=== PATIENT | female | born 1985 | race Caucasian/White ===

== ENCOUNTER 2019-12-11 20:40 | Emergency (ER) | payer BC ==
[~2019-12-11] VITALS: Ht 170.2 cm; Wt 93.1 kg
--- NOTE | 2019-12-11 20:53 | PHYS DOC ---
Adult General Chief Complaint Chief Complaint: SHORTNESS OF BREATH HPI HPI 34-year-old female presents emergency department complaints of shortness of breath. Patient states she had symptoms of fever and cough for the last 4 days worsening today. She states that she was told to self quarantine which she has been doing however given the shortness of breath that is worsened over the last 30 to 40 minutes she presents to the ER for further evaluation. Patient denies any headache or visual change, chest pain, nausea or vomiting, abdominal pain. Nothing makes her symptoms worse, nothing makes her symptoms better. Review of Systems Review of Systems Constitutional: fever Respiratory: cough/SOB Cardiovascular: No additional information not addressed in HPI [] GI: Denies abdominal pain, nausea, vomiting, bloody stools or diarrhea [] Musculoskeletal: Denies back pain or joint pain [] Neurologic: Denies headache, focal weakness or sensory changes [] All other systems were reviewed and found to be within normal limits, except as documented in this note. Current Medications Current Medications Current Medications Medications (Trade) Dose Ordered Sig/Sabrina Start Time Stop Time Status Last Admin Dose Admin Albuterol/ Ipratropium (Duoneb) 3 ml 1X ONCE 12/11/19 21:00 12/11/19 21:01 DC 12/11/19 20:56 3 ML Sodium Chloride 1,000 ml @ 1,000 mls/hr 1X ONCE 12/11/19 21:30 12/11/19 22:29 DC 12/11/19 22:01 1,000 MLS/HR Allergies Allergies Allergies Coded Allergies Type Severity Reaction Last Updated Verified No Known Drug Allergies 12/11/19 No Physical Exam Physical Exam Constitutional: Well developed, well nourished, mild distress, non-toxic appea tin. [] Cardiovascular: Tachycardia Lungs & Thorax: coarse BS Skin: Warm, dry, no erythema, no rash. [] Extremities: No tenderness, no edema. [] Neurologic: Alert and oriented X 3, no focal deficits noted. [] Psychologic: Affect normal, judgement normal, mood normal. [] Current Patient Data Vital Signs Vital Signs Date Time Temp Pulse Resp B/P (MAP) Pulse Ox O2 Delivery O2 Flow Rate FiO2 12/11/19 20:58 99 Room Air 12/11/19 20:40 98.5 89 20 140/87 (104) 98.5 Lab Values Laboratory Tests Test 12/11/19 20:50 White Blood Count 9.9 x10^3/uL (4.0-11.0) Red Blood Count 4.81 x10^6/uL (3.50-5.40) Hemoglobin 14.2 g/dL (12.0-15.5) Hematocrit 41.0 % (36.0-47.0) Mean Corpuscular Volume 85 fL (79-100) Mean Corpuscular Hemoglobin 30 pg (25-35) Mean Corpuscular Hemoglobin Concent 35 g/dL (31-37) Red Cell Distribution Width 14.1 % (11.5-14.5) Platelet Count 363 x10^3/uL (140-400) Neutrophils (%) (Auto) 57 % (31-73) Lymphocytes (%) (Auto) 31 % (24-48) Monocytes (%) (Auto) 10 % (0-9) H Eosinophils (%) (Auto) 2 % (0-3) Basophils (%) (Auto) 1 % (0-3) Neutrophils # (Auto) 5.6 x10^3/uL (1.8-7.7) Lymphocytes # (Auto) 3.0 x10^3/uL (1.0-4.8) Monocytes # (Auto) 1.0 x10^3/uL (0.0-1.1) Eosinophils # (Auto) 0.2 x10^3/uL (0.0-0.7) Basophils # (Auto) 0.1 x10^3/uL (0.0-0.2) Sodium Level 138 mmol/L (136-145) Potassium Level 3.4 mmol/L (3.5-5.1) L Chloride Level 99 mmol/L (98-107) Carbon Dioxide Level 26 mmol/L (21-32) Anion Gap 13 (6-14) Blood Urea Nitrogen 12 mg/dL (7-20) Creatinine 1.0 mg/dL (0.6-1.0) Estimated GFR (Cockcroft-Gault) 63.1 BUN/Creatinine Ratio 12 (6-20) Glucose Level 98 mg/dL (70-99) Calcium Level 9.3 mg/dL (8.5-10.1) Total Bilirubin 0.4 mg/dL (0.2-1.0) Aspartate Amino Transferase (AST) 22 U/L (15-37) Alanine Aminotransferase (ALT) 34 U/L (14-59) Alkaline Phosphatase 106 U/L (46-116) Total Protein 7.7 g/dL (6.4-8.2) Albumin 3.6 g/dL (3.4-5.0) Albumin/Globulin Ratio 0.9 (1.0-1.7) L Influenza Type A Antigen Negative (NEGATIVE) Influenza Type B Antigen Negative (NEGATIVE) Laboratory Tests 12/11/19 20:50 Laboratory Tests 12/11/19 20:50 EKG EKG [] Radiology/Procedures Radiology/Procedures [place] [id number] IMAGING REPORT Signed PATIENT: ERIKA DUVALLCOUNT: [id number] : 1985 LOCATION: ER AGE: 34 SEX: F EXAM STATUS: REG ER ORD. PHYSICIAN: DURGA VELAZQUEZ MD REASON: SOB/Fever/Cough PROCEDURE: PORTABLE CHEST 1V Study: CR PORTABLE CHEST 1V Indication: Shortness of breath. Fever. Cough. Comparison: None. Findings: Azygos lobe noted. Within normal limits cardiomediastinal silhouette and donis. No lobar consolidation, pleural effusion or pneumothorax. Impression: No acute radiographic abnormality of the chest. Electronically signed by: SOUMYA PERKINS MD (12/11/2019 9:30 PM) [id number] DICTATED and SIGNED BY: SOUMYA PERKINS MD DATE: 12/11/192129 [] [address] [id number] IMAGING REPORT Signed PATIENT: ERIKA DUVALL MACCOUNT: [id number] : 1985 LOCATION: ER AGE: 34 SEX: F EXAM STATUS: REG ER ORD. PHYSICIAN: DURGA VELAZQUEZ MD REASON: cough/fever/SOB / HX Denies PROCEDURE: CT CHEST WO CONTRAST Exam: CT of chest without contrast INDICATION: Cough, fever, shortness of breath TECHNIQUE: Sequential axial images through the chest obtained without IV contrast. Sagittal and coronal reformatted images were reconstructed from the axial data and reviewed. Comparisons: None FINDINGS: Visualized portions of the thyroid are unremarkable. No enlarged mediastinal lymph nodes are identified. Heart size is normal. No pericardial effusion. Thoracic aorta has a normal course and caliber. Pulmonary artery is not enlarged. Airways are patent. No consolidation or pneumothorax. Patchy areas of tree-in-bud nodularity/groundglass opacity in the left upper lobe. No pleural effusion or thickening. Visualized upper abdomen is unremarkable. No suspicious osseous lesions or acute fractures. IMPRESSION: Tree-in-bud areas of nodularity/ground glass opacity in the left upper lobe favored to be infectious or inflammatory in etiology. Exposure: One or more of the following in the visualized dose reduction techniques were utilized for this examination: 1. Automated exposure control 2. Adjustment of the MA and/or KV according to patient size 3. Use of iterative of reconstructive technique Electronically signed by: Fernando Mi MD (12/11/2019 10:00 PM) [id number] DICTATED and SIGNED BY: FERNANDO MI MD DATE: 12/11/192199 Course & Med Decision Making Course & Med Decision Making Pertinent Labs and Imaging studies reviewed. (See chart for details) []34-year-old female presents emergency department complaints of shortness of breath. Patient states she had symptoms of fever and cough for the last 4 days worsening today. She states that she was told to self quarantine which she has been doing however given the shortness of breath that is worsened over the last 30 to 40 minutes she presents to the ER for further evaluation. Patient denies any headache or visual change, chest pain, nausea or vomiting, abdominal pain. Nothing makes her symptoms worse, nothing makes her symptoms better. Laboratory values reviewed, CT of the chest reveals evidence of left upper lobe consolidation Influenza negative, CBC metabolic profile unremarkable, white blood cell count 9.9 Recommend antibiotic therapy x10 days, continue quarantine for total 14 days as discussed with Department of Health Patient has no evidence of hypoxia, heart rate has improved, she does feel somewhat better after the breathing treatment. Plan discharge home follow-up as an outpatient Alicia Disclaimer Dragon Disclaimer This electronic medical record was generated, in whole or in part, using a voice recognition dictation system. Departure Departure Impression: Primary Impression: Pneumonia Disposition: 01 HOME, SELF-CARE Condition: IMPROVED Patient Instructions: Pneumonia, Adult, [id number] Additional Instructions: CT with evidence of left upper lobe pneumonia - this is not consistent with COVID 19 Recommend abx therapy for 10 days Recommend albuterol INH as needed for SOB/Wheeze Tylenol for fever Return to the ER with worsening SOB - if you feel that you cannot complete your daily activities without getting severely winded then you need to be seen Scripts Albuterol Sulfate (PROAIR HFA INHALER) 8.5 Gm Hfa.aer.ad 2 PUFF INH PRN Q6HRS PRN for SHORTNESS OF BREATH, #1 INHALER 0 Refills Prov: DURGA VELAZQUEZ MD 12/11/19 Levofloxacin (LEVAQUIN) 500 Mg Tablet 1 TAB PO DAILY for 10 Days, #10 TAB 0 Refills Prov: DURGA VELAZQUEZ MD 12/11/19 Problem Qualifiers Primary Impression: Pneumonia Pneumonia type: due to unspecified organism Laterality: left Lung location: upper lobe of lung Qualified Codes: J18.9 - Pneumonia, unspecified organism DURGA VELAZQUEZ MD Dec 11, 2019 20:53
[2019-12-11] MEDS ORDERED: IPRATRPIUM/ALBUTEROL 0.5/2.5MG 3 ML NEBU. NEB ONE (21:00)
[2019-12-11 21:10] LABS: BASO # 0.1 x10^3/uL (0.0-0.2); BASO % 1 % (0-3); EOS # 0.2 x10^3/uL (0.0-0.7); EOS % 2 % (0-3); HEMOGLOBIN 14.2 g/dL (12.0-15.5); LYMPH % 31 % (24-48); MEAN CORPUSCULAR HEMOGLOBIN 30 pg (25-35); MEAN CORPUSCULAR HGB CONC 35 g/dL (31-37); MEAN CORPUSCULAR VOLUME 85 fL (79-100); MONO % 10 % (0-9); NEUT # 5.6 x10^3/uL (1.8-7.7); NEUT % 57 % (31-73); PLATELET COUNT 363 x10^3/uL (140-400); RED BLOOD COUNT 4.81 x10^6/uL (3.50-5.40); RED CELL DISTRIBUTION WIDTH 14.1 % (11.5-14.5); WHITE BLOOD COUNT 9.9 x10^3/uL (4.0-11.0)
[2019-12-11 21:17] LABS: CALCIUM 9.3 mg/dL (8.5-10.1); GFR 63.1; POTASSIUM 3.4 mmol/L (3.5-5.1)
[2019-12-11 21:22] LABS: ALBUMIN 3.6 g/dL (3.4-5.0); ALBUMIN/GLOBULIN RATIO 0.9 (1.0-1.7); TOTAL BILIRUBIN 0.4 mg/dL (0.2-1.0); TOTAL PROTEIN 7.7 g/dL (6.4-8.2)
[2019-12-11 21:24] LABS: INFLUENZA A PATIENT NEGATIVE (NEGATIVE); INFLUENZA B PATIENT NEGATIVE (NEGATIVE)
[2019-12-11] MEDS ORDERED: IV NORMAL SALINE 1000ML BAG 1,000 ML IV ONE (21:30)
--- NOTE | 2019-12-11 21:33 | RAD ---
Study: CR PORTABLE CHEST 1V Indication: Shortness of breath. Fever. Cough. Comparison: None. Findings: Azygos lobe noted. Within normal limits cardiomediastinal silhouette and donis. No lobar consolidation, pleural effusion or pneumothorax. Impression: No acute radiographic abnormality of the chest. Electronically signed by: SOUMYA PERKINS MD (12/11/2019 9:30 PM) [id number]
--- NOTE | 2019-12-11 22:03 | RAD ---
Exam: CT of chest without contrast INDICATION: Cough, fever, shortness of breath TECHNIQUE: Sequential axial images through the chest obtained without IV contrast. Sagittal and coronal reformatted images were reconstructed from the axial data and reviewed. Comparisons: None FINDINGS: Visualized portions of the thyroid are unremarkable. No enlarged mediastinal lymph nodes are identified. Heart size is normal. No pericardial effusion. Thoracic aorta has a normal course and caliber. Pulmonary artery is not enlarged. Airways are patent. No consolidation or pneumothorax. Patchy areas of tree-in-bud nodularity/groundglass opacity in the left upper lobe. No pleural effusion or thickening. Visualized upper abdomen is unremarkable. No suspicious osseous lesions or acute fractures. IMPRESSION: Tree-in-bud areas of nodularity/ground glass opacity in the left upper lobe favored to be infectious or inflammatory in etiology. Exposure: One or more of the following in the visualized dose reduction techniques were utilized for this examination: 1. Automated exposure control 2. Adjustment of the MA and/or KV according to patient size 3. Use of iterative of reconstructive technique Electronically signed by: Fernando Rodney MD (12/11/2019 10:00 PM) [id number]
[2019-12-11 22:46] VITALS: BP 128/77
[2019-12-11] MEDS ORDERED: LEVO500T59 PO (22:53)
[2019-12-11] MEDS ORDERED: ALBU2.5V8 INH (22:53)
== END 2019-12-11 23:00 | disposition home or self-care (01) ==
LOC: ER 20:40
DX: J18.9 Pneumonia, unspecified organism (principal); R06.02 Shortness of breath; R50.9 Fever, unspecified; R05 Cough
CPT/HCPCS: 36415; 71045; 71250; 80053; 85025; 87040; 87804; 99285; J7030